=== PATIENT | female | born 1970 | race Hispanic/Latino ===

== ENCOUNTER 2019-11-22 08:40 | Emergency (ER) | payer MEDICAID ==
[2019-11-22] MEDS ORDERED: KETOROLAC TROMETHAMINE 60 MG/2 ML VIAL ONE (09:08)
[2019-11-22] MEDS ORDERED: DIAZEPAM 5 MG/ML 2 ML SYG ONE (09:08)
== END 2019-11-22 10:04 | disposition home or self-care (01) ==
LOC: EDH 08:40
DX: S46.912A Strain of unspecified muscle, fascia and tendon at shoulder and upper arm level, left arm, initial encounter (principal); X58.XXXA Exposure to other specified factors, initial encounter; Y93.89 Activity, other specified; Y92.098 Other place in other non-institutional residence as the place of occurrence of the external cause; Y99.8 Other external cause status; G62.9 Polyneuropathy, unspecified; Z88.0 Allergy status to penicillin; Z98.890 Other specified postprocedural states; Z90.49 Acquired absence of other specified parts of digestive tract
CPT/HCPCS: 71045; 93005; 96372 ×2; 99284; J1885; J3360

== ENCOUNTER 2020-12-26 22:46 | Emergency (ER) | payer MEDICAID ==
[~2020-12-26] VITALS: Ht 160 cm; Wt 84.8 kg
[2020-12-26 23:08] LABS: APPEARANCE,URINE Clear (CLEAR); BILIRUBIN,URINE Negative (NEGATIVE); COLOR,URINE Yellow (YELLOW); GLUCOSE, URINE (UA) Negative (NEGATIVE); KETONES,URINE 15 mg/dL (NEGATIVE); LEUKOCYTE ESTERASE ,URINE Moderate (NEGATIVE); NITRATE,URINE Negative (NEGATIVE); OCCULT BLOOD,URINE Moderate (NEGATIVE); PROTEIN,URINE Negative (NEGATIVE)
[2020-12-26 23:17] LABS: BACTERIA,URINE Many /HPF (None Seen)
[2020-12-27 03:23] VITALS: BP 162/76
[2020-12-27] MEDS ORDERED: LEVOFLOXACIN 500 MG/D5W 100 ML 100 ML IV SCH (04:00)
[2020-12-27] MEDS ORDERED: ACETAMINOPHEN 500 MG TABLET PO ONE (05:00)
[2020-12-27] MEDS ORDERED: PHEN-847 PO (05:56)
[2020-12-27] MEDS ORDERED: LEVO500T89 PO (05:56)
[2020-12-27 06:10] VITALS: BP 155/72
[2020-12-31 17:10] LABS: CHLAMYDIA DNA N.A.AMPLIFY Negative (Negative)
== END 2020-12-27 06:21 | disposition home or self-care (01) ==
LOC: EDH 22:46
DX: N39.0 Urinary tract infection, site not specified (principal); Z88.0 Allergy status to penicillin
CPT/HCPCS: 81001; 87077; 87088; 87186; 87486; 87797; 96365; 99284; J1956

== ENCOUNTER 2023-08-01 10:37 | Emergency (ER) | payer BC, MEDICAID ==
[~2023-08-01] VITALS: Ht 160 cm; Wt 85.7 kg
[~2023-08-01 10:37] MED LIST: LEVO-70 PO; PHEN-847 PO
[2023-08-01 12:58] LABS: APPEARANCE,URINE CLOUDY (CLEAR); BILIRUBIN,URINE 0.5 mg/dL (NEGATIVE); COLOR,URINE YELLOW (YELLOW); GLUCOSE, URINE (UA) NEGATIVE (NEGATIVE); KETONES,URINE 60 mg/dL (NEGATIVE); LEUKOCYTE ESTERASE ,URINE NEGATIVE Leu/uL (NEGATIVE); NITRATE,URINE NEGATIVE (NEGATIVE); OCCULT BLOOD,URINE LARGE (NEGATIVE); PH,URINE 5.5 (5.0-8.0); PROTEIN,URINE 70 mg/dL (NEGATIVE)
[2023-08-01 13:11] LABS: SARS-CoV-2, RNA, NAAT NEGATIVE SARS CoV-2 (NEGATIVE)
[2023-08-01 13:16] LABS: ADD UA MICROSCOPIC YES
[2023-08-01 13:17] LABS: BACTERIA,URINE RARE /HPF (None Seen); MUCUS,URINE MANY LPF (None Seen); SQUAMOUS EPITHELIAL CELL,UR RARE /HPF (0-2)
[2023-08-01] MEDS: DEXAMETHASONE SOD PHOSPHATE 4 MG/ML 1ML VIAL IVP ONE (13:20)
[2023-08-01 13:21] LABS: INFLUENZA TYPE A Negative For Type A (NEGATIVE); INFLUENZA TYPE B Negative For Type B (NEGATIVE)
[2023-08-01] MEDS: 0.9%NACL 1000ML 1,000 ML IV ONE (13:21)
[2023-08-01 13:43] LABS: BASOPHILS # (AUTO) 0.03 K/uL (0.00-0.20); BASOPHILS % (AUTO) 0.2 % (0.0-5.0); EOSINOPHILS # (AUTO) 0.02 K/uL (0.00-0.70); EOSINOPHILS % (AUTO) 0.2 % (0.0-8.0); HEMATOCRIT 46.9 % (36-48); IMMATURE GRANULOCYTE ABSOLUTE 0.03 K/uL (0-1); LYMPHOCYTES # (AUTO) 2.3 K/uL (1.0-4.8); MEAN CORPUSCULAR HEMOGLOBIN 27.8 pg (27.0-33.0); MEAN CORPUSCULAR HGB CONC 32.2 g/dL (32.0-36.0); MEAN CORPUSCULAR VOLUME 86.2 fL (79-99); MONOCYTES # (AUTO) 0.8 K/uL (0.1-1.0); MONOCYTES % (AUTO) 6.6 % (3.0-13.0); NEUTROPHILS # (AUTO) 9.5 K/uL (1.8-7.7); NEUTROPHILS % (AUTO) 74.8 % (40.0-77.0); PLATELET COUNT (AUTO) 268 K/uL (130-400); RED BLOOD CELL COUNT(AUTO) 5.44 MIL/uL (4.00-5.50); RED CELL DISTRIBUTION WIDTH 13.3 % (11.0-15.5); WHITE BLOOD COUNT (AUTO) 12.7 K/uL (4.8-10.8)
[2023-08-01 13:54] LABS: CREATININE 0.7 mg/dL (0.5-1.0); POTASSIUM 4.2 mmol/L (3.5-5.1)
[2023-08-01 13:58] LABS: ALBUMIN 3.6 g/dL (3.5-5.0); BILIRUBIN,TOTAL 0.5 mg/dL (0.2-1.0); TOTAL PROTEIN, SERUM 9.1 g/dL (6.0-8.3)
[2023-08-01 14:13] LABS: RAPID GROUP A STREP positive (NEGATIVE)
[2023-08-01] MEDS ORDERED: AZIT500T4 PO (14:25)
[2023-08-01] MEDS ORDERED: IBUP-2070 PO (14:26)
[2023-08-01] MEDS: AZITHROMYCIN 250 MG TABLET PO ONE (14:32)
[2023-08-01 15:16] VITALS: BP 126/80; PULSE 78; RESP 16; O2SAT 99
== END 2023-08-01 15:19 | disposition home or self-care (01) ==
LOC: EDH 10:37
DX: J02.0 Streptococcal pharyngitis (principal); Z88.0 Allergy status to penicillin; Z20.822 Contact with and (suspected) exposure to COVID-19
CPT/HCPCS: 99284; 96374; 71045; 87635; 96361; 80053; 83690; 85025; 87088; 87880; 87804 ×2; 83605; 81001; 36415; J1100; J7030; 29125